=== PATIENT | female | born 1955 | race Caucasian/White ===

== ENCOUNTER 2016-06-18 10:25 | Emergency (ER) | payer MEDICARE, OTHER ==
--- NOTE | ~2016-06-18 | CR170 ---
[facility] A Service of [facility] RADIOLOGY TEXT RESULTS PATIENT: CLARENCE WEBSTER LOCATION: [facility] : 59 UNIT #: [id number] AGE: [address]: Julita Maldonado SEX: F ORDER DR: [id number] [facility] [address] [place], [place] [address] [id number] E MR#: [id number] Acc #: [id number] NAME: CLARENCE WEBSTER : 1955 SEX: F STUDY DATE/TIME: 06/18/2016 10:24 UNIT: [facility] ROOM: STUDY DESCRIPTION: CR Knee 2 Views Rt Attending Physician: Julita Maldonado P.A.-C. Ordering Physician: Julita Malodnado P.A.-C. Primary Care Physician: Clay GreyPJeffersonRJill MEDICAL IMAGING REPORT This report is preliminary unless electronic signature is present EXAM 2 views right knee. DATE 06/18/2016 HISTORY 61-year-old female with right lateral and frontal knee pain and difficulty walking and standing. Symptoms present for 2 days. No known trauma. COMPARISON None. FINDINGS Advanced degenerative changes are demonstrated at the patellofemoral compartment with joint space narrowing and prominent patellofemoral osteophyte formation. Medial and lateral compartment spaces appear well preserved with only mild marginal osteophyte formation. Tiny tibial spine spurring is present. No definite joint effusion. No fracture. No dislocation. No osteolytic or osteoblastic abnormality. IMPRESSION 1. 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 2. Preservation of the lateral and medial compartments of the right knee. 3. No acute osseous abnormality. Dictated by... Willow Jha M.D. THIS IS AN ELECTRONICALLY VERIFIED REPORT Willow Jha M.D. at 06/20/2016 12:05 AM [facility] A Service of [facility] RADIOLOGY TEXT RESULTS PATIENT: CLARENCE WEBSTER [id number] : 59 UNIT #: [id number] AGE: [address]: Juilta Maldonado SEX: F ORDER DR: MEENA/rnr TD: 06/18/2016 12:52 JOB #: [id number] MEDICAL IMAGING REPORT Page 1 of 1 COPY
[~2016-06-18 10:25] MED LIST: ACETAMINOPHEN PO; ADVAIR 250-501 EAC1; ALBUTEROL17 GM IH; ALBUTEROL17 GM INH; ALLOPURINOL300 MG PO; AMITRYPTYLINE PO; BENZONATATE PO; CIPRO PO; CIPRO250 MG PO; DICLOFENAC PO; FERRO-TIME325 MG PO; FLONASE 0.05% N16 G1; HYDROXYZINE HCL25 M1 PO; LANTUS100 U/ML; LANTUS100 U/ML SUBQ; LEVEMIR SUBQ; LEVIMIR INSULIN SUBQ; LOPRESSOR PO; LOTREL 5/10 MG1 CAP PO; LOTREL PO; METFORMIN PO; METOPROLOL SUCC50 MG PO; NORCO 5/325 TAB1 TAB PO; NOVOLIN N100 U/ML SUBQ; NOVOLOG100 U/ML; NOVOLOG100 U/ML SUBQ; NOVOLOG100 UNITS/; OMEPRAZOLE20 M2 PO; ONDANSETRON HCL4 MG PO; OXYGEN; PHENERGAN PO; PREDNISONE PO; PRILOSEC PO; PRILOSEC20 M1 PO; PROTONIX PO; REGLAN PO; REGLAN10 MG PO; TRICOR PO; TYLENOL #3 PO; VIBRAMYCIN100 M1 PO; VICODIN PO; ZITHROMAX PO; ZOCOR PO; ZYLOPRIM PO; ZYLOPRIM100 MG PO
== END 2016-06-18 11:15 | disposition home or self-care (01) ==
LOC: CFTX 10:25
DX: M25.561 Pain in right knee (principal); I10 Essential (primary) hypertension; E11.9 Type 2 diabetes mellitus without complications; M10.9 Gout, unspecified; Z79.4 Long term (current) use of insulin; Z90.710 Acquired absence of both cervix and uterus; Z90.49 Acquired absence of other specified parts of digestive tract; J45.909 Unspecified asthma, uncomplicated; Z87.891 Personal history of nicotine dependence
CPT/HCPCS: 29530; 73560; 99283